=== PATIENT | male | born 1955 | race Caucasian/White ===

== ENCOUNTER 2024-01-04 05:04 | Outpatient (CLI) | payer OTHER, SELFPAY ==
[2024-01-04] MEDS: Levalbuterol HFA 15 GM INH 4 PUFF IH (16:33)
[2024-01-04] MEDS: Inhaler, Assist Device 1 EACH MC (16:34)
--- NOTE | 2024-01-05 14:56 | W.PFT ---
Date of service: 01/04/24 Time of Service: 15:06 Pulmonary Function Test Result Indications: Emphysema Interpretation Spirometry: There is severe airflow limitation. No significant bronchodilator response. Lung Volumes: There is air trapping and hyperinflation. Diffusion Capacity: Decreased diffusion Airway Pressure: Increased airways resistance Impression Severe airflow obstruction with air trapping and a decreased diffusion. This is consistent with COPD with emphysema. Clinical Correlation therefore is recommended.
== END 2024-01-04 05:05 | disposition home or self-care (01) ==
LOC: RT 05:04
PROVIDERS: PCP Nurse Practitioner Family; Visit Provider Nurse Practitioner Family
DX: J44.89 Other specified chronic obstructive pulmonary disease (principal)
CPT/HCPCS: 94060; 94726; 94729